=== PATIENT | male | born 1950 | race Caucasian/White ===

== ENCOUNTER 2018-10-04 14:42 | Observation (INO) ==
[2018-10-04] MEDS ORDERED: Aspirin 325 MG Tablet PO ONE (15:00)
[2018-10-04 15:20] LABS: Baso % (Auto) 0.7 % (0.0-2.0); Eos # (Auto) 0.1 th/mm3 (0.0-0.4); Eos % (Auto) 0.8 % (0.0-4.0); Hematocrit 40.4 % (39.0-51.0); Hemoglobin 13.8 gm/dL (13.0-17.0); Lymph # (Auto) 1.4 th/mm3 (1.0-4.8); Mean Corpuscular HGB Conc 34.2 % (32.0-36.0); Mean Corpuscular Hemoglobin 30.4 pg (27.0-34.0); Mean Corpuscular Volume 88.8 fL (80.0-100.0); Mean Platelet Volume 7.3 fL (7.0-11.0); Mono # (Auto) 0.6 th/mm3 (0.0-0.9); Neut # (Auto) 4.8 th/mm3 (1.8-7.7); Neut % (Auto) 69.5 % (16.0-70.0); Platelet Count 253 th/mm3 (150-450); Red Blood Count 4.55 mil/mm3 (4.50-5.90); Red Cell Distribution Width 13.5 % (11.6-17.2); White Blood Count 6.9 th/mm3 (4.0-11.0)
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
[2018-10-04 15:35] LABS: Alanine Aminotransferase 20 U/L (12-78); Albumin 4.3 g/dL (3.4-5.0); Anion Gap 12 meq/L (5-15); Aspartate Aminotransferase 20 U/L (15-37); Blood Urea Nitrogen 30 mg/dL (7-18); Calcium 10.1 mg/dL (8.5-10.1); Carbon Dioxide 21.2 meq/L (21.0-32.0); Chloride 106 meq/L (98-107); Glomerular Filtration Rate 39 mL/min (>89); Glucose,Random 115 mg/dL (74-106); Lipase 103 U/L (73-393); Potassium 4.6 meq/L (3.5-5.1); Sodium 139 meq/L (136-145)
[2018-10-04 15:38] LABS: Alkaline Phosphatase 59 U/L (45-117)
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
[2018-10-04] MEDS ORDERED: Acetaminophen 500 MG Tablet PO PRN (17:16)
[2018-10-04] MEDS ORDERED: Dextrose 50% in Water 50 ML Vial IV.PUSH PRN (17:18)
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
[2018-10-04] MEDS: Budesonide-Formoterol 80/4.5 MCG 6.9 GM Inhaler INH SCH (20:20)
[2018-10-04] MEDS: Insulin NovoLOG Aspart Correctional Sugar Inj SQ SCH (20:22)
[2018-10-04] MEDS: ALPRAZolam 0.25 MG Tablet PO PRN (20:22)
[2018-10-04 20:51] LABS: Creatine Kinase 180 U/L (39-308)
[2018-10-04] MEDS: Morphine Sulfate 30 MG SR Tablet PO SCH (21:44)
[2018-10-05] MEDS ORDERED: Levothyroxine 150 MCG Tablet PO SCH (06:00)
[2018-10-05] MEDS: Insulin NovoLOG Aspart Correctional Sugar Inj SQ SCH (08:20)
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
[2018-10-05] MEDS: Morphine Sulfate 30 MG SR Tablet PO SCH (08:36)
[2018-10-05] MEDS: ALPRAZolam 0.25 MG Tablet PO PRN (08:37)
[2018-10-05] MEDS ORDERED: Ramipril 2.5 MG Capsule PO SCH (09:00)
[2018-10-05] MEDS ORDERED: Aspirin 325 MG Tablet PO SCH (09:00)
[2018-10-05] MEDS ORDERED: Vitamins A,C,E/Lutein/Minerals Tablet PO SCH (09:00)
[2018-10-05] MEDS ORDERED: Regadenoson Inj 0.4 MG/5 ML Syringe IV.PUSH ONE (09:50)
--- NOTE | 2018-10-05 11:15 | NM ---
EXAM DATE: 10/05/2018 11:04 AM EST AGE/SEX: 68 years / Male INDICATIONS:Angina. Coronary artery disease Chest pain. CLINICAL DATA: This is the patient's initial encounter. Patient reports that signs and symptoms have been present for 1 day and indicates a pain score of 1/10. MEDICAL/SURGICAL HISTORY: Myocardial infarction. Hypertension. Diabetes mellitus type II. Cor onary artery stent. Inguinal hernia repair. COMPARISON: No prior exams available for comparison. DOSE: 8.7 mCi Tc 99m Myoview at rest 26.4 mCi [id number] at stress 0.4 mg Lexiscan STRESS SYMPTOMS: Dyspnea. EJECTION FRACTION: > 70 % TECHNIQUE: The patient underwent pharmacologic stress with infusion of prescribed dose. Continuous ECG tracing was monitored during stress. Gated SPECT imaging was performed after stress and conventi onal SPECT imaging was performed at rest. The examination was performed on a SPECT/CT scanner, both attenuation and non-corrected datasets were reviewed. FINDINGS: Distribution: The maximum perfused segment at stress is in the lateral wall. Perfusion Study: The pattern of perfusion at stress is within normal limits. Gated Study: There are intact wall motion and wall thickening without hypokinetic or dyskinetic segm ents. The ejection fraction is calculated at > 70%. RISK CATEGORY: Low (<1% Annual Mortality Rate) CONCLUSION: 1. Unremarkable myocardial perfusion examination. Electronically signed by: Dawson Catherine MD Board Certified Radiologist 10/05/2018 11:13 AM EST
[2018-10-05] MEDS: Budesonide-Formoterol 80/4.5 MCG 6.9 GM Inhaler INH SCH (11:44)
--- NOTE | 2018-10-05 16:54 | TR ---
Date Performed: 10/05/2018 Time Performed: 09:54:33 DOCTOR: Aleja Kim DRUG LIST: CLINICAL HISTORY: CHEST PAIN REASON FOR TEST: CHEST PAIN REASON FOR ENDING: OBSERVATION: CONCLUSION: Lexiscan stress test was performed under standard four minute protocol. Radionuclid e was injected one minute prior to ending the test. No electrocardiographic abormalities were present to suggest ischemia. Nuclear imaging and interpretation are pending. COMMENTS: Lexiscan stress test was performed under standard four minute protocol. Radionuclide was injected one minute prior to ending the test. No electrocardiographic abormalities were present t o suggest ischemia. Nuclear imaging and interpretation are pending.
--- NOTE | 2018-10-05 16:59 | ECG ---
Date Performed: 10/04/2018 Time Performed: 18:39:57 PTAGE: 68 years EKG: SINUS BRADYCARDIA POSSIBLE RIGHT VENTRICULAR CONDUCTION DELAY BORDERLINE ECG Since PREVIOUS TRACING , no significant change noted DOCTOR: Aleja Kim Interpretating Date/Time 10/05/2018 16:58:03
--- NOTE | 2018-10-05 16:59 | ECG ---
Date Performed: 10/04/2018 Time Performed: 20:54:51 PTAGE: 68 years EKG: Sinus rhythm POSSIBLE LEFT ATRIAL ENLARGEMENT INCOMPLETE RIGHT BUNDLE BRANCH BLOCK POSSIBLE LATERAL MYOCARDIAL IN FARCTION ABNORMAL ECG Since PREVIOUS TRACING , no significant change noted PREVIOUS TRACIN10/04/2018 18.39 DOCTOR: Aleja Kim Interpretating Date/Time 10/05/2018 16:57:49
--- NOTE | 2018-10-05 16:59 | ECG ---
Date Performed: 10/04/2018 Time Performed: 15:15:16 PTAGE: 68 years EKG: Sinus rhythm POSSIBLE LEFT ATRIAL ENLARGEMENT POSSIBLE RIGHT VENTRICULAR CONDUCTION DELAY Incomplete Right bundle branch block Since PREVIOUS TRACING , no significant change noted PREVIOUS TRACIN10/17/2003 04.07 DOCTOR: Aleja Kim Interpretating Date/Time 10/05/2018 16:59:35
== END 2018-10-05 11:48 | disposition home or self-care (01) ==
LOC: NEPD 14:42 → NEDA 14:42 → NEPHCDU 18:30
PROVIDERS: ADMIT Internal Medicine Interventional Cardiology; ATTEND Internal Medicine Interventional Cardiology
DX: N28.9 Disorder of kidney and ureter, unspecified; M41.9 Scoliosis, unspecified; G89.29 Other chronic pain; Z95.5 Presence of coronary angioplasty implant and graft; F32.9 Major depressive disorder, single episode, unspecified; I25.2 Old myocardial infarction; I10 Essential (primary) hypertension; M54.9 Dorsalgia, unspecified; K44.9 Diaphragmatic hernia without obstruction or gangrene; R06.00 Dyspnea, unspecified; Z79.899 Other long term (current) drug therapy; Z87.891 Personal history of nicotine dependence; F41.1 Generalized anxiety disorder; E78.5 Hyperlipidemia, unspecified; Z79.84 Long term (current) use of oral hypoglycemic drugs; R07.89 Other chest pain; E03.9 Hypothyroidism, unspecified; Z79.82 Long term (current) use of aspirin; B19.20 Unspecified viral hepatitis C without hepatic coma; I25.10 Atherosclerotic heart disease of native coronary artery without angina pectoris; E11.9 Type 2 diabetes mellitus without complications
CPT/HCPCS: 71010; 71045; 78452; 80053; 82550; 82948; 82962; 83690; 84484; 85025; 93005; 93017; 96372; 99285; A9502; G0378; J1815; J2785; Q9969